=== PATIENT | male | born 1985 | race Caucasian/White ===

== ENCOUNTER 2016-09-08 13:42 | Emergency (ER) | payer OTHER ==
[~2016-09-08] VITALS: Ht 175.3 cm; Wt 93.2 kg
[2016-09-08 13:43] VITALS: TEMP 97.8
[2016-09-08 16:02] VITALS: BP 121/91; PULSE 92
== END 2016-09-08 16:09 | disposition home or self-care (01) ==
LOC: COL.ER 13:42
DX: S62.601B Fracture of unspecified phalanx of left index finger, initial encounter for open fracture (principal); Z23 Encounter for immunization; W23.0XXA Caught, crushed, jammed, or pinched between moving objects, initial encounter; Y92.69 Other specified industrial and construction area as the place of occurrence of the external cause; Y99.0 Civilian activity done for income or pay
CPT/HCPCS: J0690